=== PATIENT | female | born 1930 | race Caucasian/White ===

== ENCOUNTER 2016-09-20 08:42 | Emergency (ER) | payer MEDICARE, BC ==
[~2016-09-20] VITALS: Ht 166.4 cm; Wt 64.0 kg
[~2016-09-20 08:42] MED LIST: AMLO5TAB13 PO; ASPI81TA82 PO; EPIP0.3I IJ; FAMO40TA PO; FEXO60TA PO; MEDR4PAK3 PO; MOTELUKAST PO; PRAV20 PO; RANI150 PO
[2016-09-20 08:52] VITALS: BP 129/75; PULSE 102; RESP 18; TEMP 99.3; O2SAT 93
[2016-09-20] MEDS ORDERED: SODIUM CHLOR 0.9% 1000 ML INJ 1,000 ML IV ONE (09:15)
[2016-09-20] MEDS ORDERED: methylPREDNISolone SOD SUCC 125 MG/2 ML VIAL IVP ONE (09:15)
[2016-09-20] MEDS ORDERED: BENZONATATE 100 MG CAP PO ONE (09:15)
[2016-09-20] MEDS: RESP: ALBUTEROL 2.5 MG/3 ML NEB (SCH) INH (09:20)
--- NOTE | 2016-09-20 09:23 | PD ---
HPI Chief Complaint: Cold / Flu Symptoms Time Seen by Provider: 09:04 Travel History International Travel<30 days: No Contact w/Intl Traveler<30days: No Traveled to known affect area: No History of Present Illness HPI Patient is an 85-year-old female who presents to emergency room with complaints of cough, nasal congestion, postnasal drip for the past 4 days. Patient reports that she followed up with her primary care doctor 4 days ago for these symptoms, reports that she was treated with a Z-Jayesh and promethazine with codeine. Patient reports that she has one more day of antibiotics left, reports that her symptoms have been persistent. Reports that she is still coughing, reports a productive cough with thick greenish sputum. Reports that she has been coughing so much, she has been unable to get good sleep. Patient denies no fevers or chills. Patient denies any sick contacts. Patient denies chest pain or shortness of breath. Patient did get the flu vaccine this year. PFSH Past Medical History High Cholesterol: Yes Diminished Hearing: No Immunizations Current: No ?: Not Past Surgical History Appendectomy: Yes Social History Alcohol Use: Yes (OCC.) Tobacco Use: No Substance Use: No Allergies-Medications (Allergen,Severity, Reaction): Coded Allergies: No Known Allergies (Unverified , 09/20/16) Reported Meds & Prescriptions Reported Meds & Active Scripts Active Levaquin (Levofloxacin) 750 Mg Tab 750 Mg PO DAILY 7 Days Prednisone 20 Mg Tab 20 Mg PO BID 5 Days Proair Hfa 8.5 GM Inh (Albuterol Sulfate) 90 Mcg/Act Aer 2 Puff INH Q4-6H PRN 108 mcg/actuation Tessalon Perles (Benzonatate) 100 Mg Cap 200 Mg PO TID PRN Reported Zithromax Z-Jayesh (Azithromycin) 250 Mg Dspk 250 Mg PO DIRECTED 500 MG (2 tabs) day 1, then 1 tab days 2-5. Promethazine VC-Codeine Liq (Jshktfshz-Xkveixetjawa-Mgvvooq Liq) 6.25-5-10 mg/ 5Ml Syp 5 Ml PO Q4-6H PRN Multi Vitamin Daily (Multiple Vitamin) 1 Tab Tab 1 Tab PO DAILY Pravastatin 40 Mg Tab 40 Mg PO HS Aspir-81 (Aspirin) 81 Mg Tabdr 1 Tab PO DAILY [Motelukast] 10 Mg PO DAILY Review of Systems General / Constitutional: No: Fever, Chills Cardiovascular: No: Chest Pain or Discomfort, Palpitations, Irregular Rhythm Respiratory: Positive: Cough, No: Shortness of Breath, Wheezing, Sneezing, Night Sweats Gastrointestinal: No: Nausea, Vomiting, Diarrhea, Abdominal Pain, Constipation Physical Exam Narrative GENERAL: No acute distress, nontoxic] SKIN: Warm and dry. HEAD: Atraumatic. Normocephalic. EYES: Pupils equal and round. No scleral icterus. No injection or drainage. ENT: No nasal bleeding or discharge. Mucous membranes pink and moist. NECK: Trachea midline. No JVD. CARDIOVASCULAR: Regular rate and rhythm. No murmur appreciated. RESPIRATORY: No accessory muscle use. Clear to auscultation. Breath sounds equal bilaterally. GASTROINTESTINAL: Abdomen soft, non-tender, nondistended. Hepatic and splenic margins not palpable. MUSCULOSKELETAL: No obvious deformities. No clubbing. No cyanosis. No edema. NEUROLOGICAL: Awake and alert. No obvious cranial nerve deficits. Motor grossly within normal limits. Normal speech. PSYCHIATRIC: Appropriate mood and affect; insight and judgment normal. Data Data Last Documented VS Vital Signs Date Time Temp Pulse Resp B/P Pulse Ox O2 Delivery O2 Flow Rate FiO2 09/20/16 09:00 107 16 94 Room Air 09/20/16 08:52 99.3 129/75 Orders Complete Blood Count With Diff (09/20/16 09:11) Comprehensive Metabolic Panel (09/20/16 09:11) Urinalysis - C+S If Indicated (09/20/16 09:11) Influenzae A/B Antigen (09/20/16 09:11) Chest, Single Ap (09/20/16 09:11) Sodium Chlor 0.9% 1000 Ml Inj (Ns 1000 M (09/20/16 09:15) Methylprednisolone So Succ Inj (Solumedr (09/20/16 09:15) Albuterol Neb (Albuterol Neb) (09/20/16 09:15) Benzonatate (Tessalon) (09/20/16 09:15) Blood Culture (09/20/16 10:31) Ceftriaxone Inj (Rocephin Inj) (09/20/16 10:45) Azithromycin Inj (Zithromax Inj) (09/20/16 10:45) Urine Culture (09/20/16 10:15) Labs Laboratory Tests Test 09/20/16 09/20/16 09:30 10:15 White Blood Count 10.3 TH/MM3 Red Blood Count 4.98 MIL/MM3 Hemoglobin 15.0 GM/DL Hematocrit 43.6 % Mean Corpuscular Volume 87.6 FL Mean Corpuscular Hemoglobin 30.1 PG Mean Corpuscular Hemoglobin 34.4 % Concent Red Cell Distribution Width 12.5 % Platelet Count 217 TH/MM3 Mean Platelet Volume 7.5 FL Neutrophils (%) (Auto) 70.8 % Lymphocytes (%) (Auto) 21.9 % Monocytes (%) (Auto) 5.8 % Eosinophils (%) (Auto) 0.2 % Basophils (%) (Auto) 1.3 % Neutrophils # (Auto) 7.4 TH/MM3 Lymphocytes # (Auto) 2.2 TH/MM3 Monocytes # (Auto) 0.6 TH/MM3 Eosinophils # (Auto) 0.0 TH/MM3 Basophils # (Auto) 0.1 TH/MM3 CBC Comment DIFF FINAL Differential Comment Sodium Level 139 MEQ/L Potassium Level 4.1 MEQ/L Chloride Level 104 MEQ/L Carbon Dioxide Level 25.1 MEQ/L Anion Gap 10 MEQ/L Blood Urea Nitrogen 11 MG/DL Creatinine 0.71 MG/DL Estimat Glomerular Filtration 78 ML/MIN Rate Random Glucose 114 MG/DL Calcium Level 8.7 MG/DL Total Bilirubin 1.1 MG/DL Aspartate Amino Transf 52 U/L (AST/SGOT) Alanine Aminotransferase 49 U/L (ALT/SGPT) Alkaline Phosphatase 92 U/L Total Protein 7.2 GM/DL Albumin 3.4 GM/DL Urine Collection Type CATH Urine Color PERLA Urine Turbidity MOD Urine pH 6.0 Urine Specific [place] 1.028 Urine Protein 30 mg/dL Urine Glucose (UA) NEG mg/dL Urine Ketones 15 mg/dL Urine Occult Blood TRACE Urine Nitrite NEG Urine Bilirubin NEG Urine Leukocyte Esterase SMALL Urine RBC 0-3 /hpf Urine WBC 9-14 /hpf Urine Squamous Epithelial 0-5 /hpf Cells Urine Transitional Epithelial 0-5 /hpf Cells Urine Amorphous Sediment MOD Microscopic Urinalysis Comment CATH-CULTURE IND Urine Collection Time 1015 MDM Medical Decision Making Medical Screen Exam Complete: Yes Emergency Medical Condition: Yes Interpretation(s) Vital Signs Date Time Temp Pulse Resp B/P Pulse Ox O2 Delivery O2 Flow Rate FiO2 09/20/16 08:52 99.3 102 18 129/75 93 Laboratory Tests Test 09/20/16 09/20/16 09:30 10:15 White Blood Count 10.3 TH/MM3 (4.0-11.0) Red Blood Count 4.98 MIL/MM3 (4.00-5.30) Hemoglobin 15.0 GM/DL (11.6-15.3) Hematocrit 43.6 % (35.0-46.0) Mean Corpuscular Volume 87.6 FL (80.0-100.0) Mean Corpuscular Hemoglobin 30.1 PG (27.0-34.0) Mean Corpuscular Hemoglobin 34.4 % Concent (32.0-36.0) Red Cell Distribution Width 12.5 % (11.6-17.2) Platelet Count 217 TH/MM3 (150-450) Mean Platelet Volume 7.5 FL (7.0-11.0) Neutrophils (%) (Auto) 70.8 % (16.0-70.0) Lymphocytes (%) (Auto) 21.9 % (9.0-44.0) Monocytes (%) (Auto) 5.8 % (0.0-8.0) Eosinophils (%) (Auto) 0.2 % (0.0-4.0) Basophils (%) (Auto) 1.3 % (0.0-2.0) Neutrophils # (Auto) 7.4 TH/MM3 (1.8-7.7) Lymphocytes # (Auto) 2.2 TH/MM3 (1.0-4.8) Monocytes # (Auto) 0.6 TH/MM3 (0-0.9) Eosinophils # (Auto) 0.0 TH/MM3 (0-0.4) Basophils # (Auto) 0.1 TH/MM3 (0-0.2) CBC Comment DIFF FINAL Differential Comment Sodium Level 139 MEQ/L (136-145) Potassium Level 4.1 MEQ/L (3.5-5.1) Chloride Level 104 MEQ/L (98-107) Carbon Dioxide Level 25.1 MEQ/L (21.0-32.0) Anion Gap 10 MEQ/L (5-15) Blood Urea Nitrogen 11 MG/DL (7-18) Creatinine 0.71 MG/DL (0.50-1.00) Estimat Glomerular Filtration 78 ML/MIN (>89) Rate Random Glucose 114 MG/DL (74-106) Calcium Level 8.7 MG/DL (8.5-10.1) Total Bilirubin 1.1 MG/DL (0.2-1.0) Aspartate Amino Transf 52 U/L (15-37) (AST/SGOT) Alanine Aminotransferase 49 U/L (10-53) (ALT/SGPT) Alkaline Phosphatase 92 U/L (45-117) Total Protein 7.2 GM/DL (6.4-8.2) Albumin 3.4 GM/DL (3.4-5.0) Urine Collection Type CATH Urine Color PERLA (YELLW/STRAW) Urine Turbidity MOD (CLEAR) Urine pH 6.0 (5.0-8.5) Urine Specific [place] 1.028 (1.002-1.035) Urine Protein 30 mg/dL (NEG-TRACE) Urine Glucose (UA) NEG mg/dL (NEG) Urine Ketones 15 mg/dL (NEG) Urine Occult Blood TRACE (NEG) Urine Nitrite NEG (NEG) Urine Bilirubin NEG (NEG) Urine Leukocyte Esterase SMALL (NEG) Urine RBC 0-3 /hpf (0-3) Urine WBC 9-14 /hpf (0-5) Urine Squamous Epithelial 0-5 /hpf (0-5) Cells Urine Transitional Epithelial 0-5 /hpf (NONE) Cells Urine Amorphous Sediment MOD Microscopic Urinalysis Comment CATH-CULTURE IND Urine Collection Time 1015 Microbiology Date/Time Procedure Status Source Growth 09/20/16 10:10 Influenza Types A,B Antigen (OSCAR) - Final Complete Nasal Aspirate NEGATIVE FOR FLU A AND B ANTIGEN.... 09/20/16 10:15 Urine Culture Received Urine Catheterized Urine Pending Differential Diagnosis Pneumonia, influenza, viral syndrome, bronchitis Narrative Course Patient is an 85-year-old female who presents to emergency room with complaints of congestion, postnasal drip, cough for the past 4 days. Patient denies fevers or chills. Patient reports that she did follow up with her primary care doctor 4 days ago was started on a Z-Jayesh and promethazine with codeine. Patient with continued symptoms. Pt clinically well appearing, afebrile in ER, tachy at 102bpm, no SIRS criteria will check pt for the flu xray obtained to check for pneumonia will check cbc, bmp, will place iv and give iv fluids as i did encourage plenty of fluids dose of tessalon pearles ordered for pt pt with bibasilar infitrates, CURB65 score of 1 plan to silva culture patient and start her on levaquin All labs and all studies reviewed with patient and her in detail. Patient feels comfortable to go home and follow-up as outpatient. Patient reports that she is feeling better. Signs and symptoms of when to return to the emergency room reviewed patient in detail. Patient will follow-up with her primary care doctor in 1-2 days, she will return to ER if symptoms progress or worsen. Patient thankful for care. A copy of pt's xray results were given to her. Patient understands need to follow up with all cultures from today Diagnosis Primary Impression: Pneumonia Qualified Code: J18.9 - Pneumonia of both lower lobes due to infectious organism Additional Impressions: UTI (urinary tract infection) Qualified Code: N30.00 - Acute cystitis without hematuria Bronchitis Patient Instructions: General Instructions Departure Forms: Tests/Procedures Additional Instructions: Please provide a copy of all labs to patient at discharge Please complete full course of antibiotics as prescribed Return to ER as needed Please drink plenty of fluids Please follow-up with your primary care doctor in 1-2 days Please follow up with cultures from today Return to ER if symptoms progress or worsen Complete full course of antibiotics Please follow up with all CULTURES from today. Med/Other Pt SpecificInfo: Prescription(s) given Scripts Levofloxacin (Levaquin)750 Mg Sto070 Mg PO DAILY 7 Days Ref 0 Prov:Asha Shaffer DO 09/20/16 Prednisone 20 Mg Tab20 Mg PO BID 5 Days Ref 0 Prov:Asha Shaffer DO 09/20/16 Albuterol 8.5 GM Inh (Proair Hfa 8.5 GM Inh)90 Mcg/Act Aer2 Puff INH Q4-6H PRN ( SHORTNESS OF BREATH) #1 INHALER Ref 0 108 mcg/actuation Prov:Asha Shaffer DO 09/20/16 Benzonatate (Tessalon Perles)100 Mg Lyd539 Mg PO TID PRN (COUGH) #30 CAP Ref 0 Prov:Asha Shaffer DO 09/20/16 Disposition: 01 DISCHARGE HOME Condition: Stable Asha Shaffer DO Sep 20, 2016 09:23
[2016-09-20 09:38] LABS: AUTOMATED NEUTROPHIL # 7.4 TH/MM3 (1.8-7.7); BASOPHIL # 0.1 TH/MM3 (0-0.2); BASOPHIL % 1.3 % (0.0-2.0); EOSINOPHIL % 0.2 % (0.0-4.0); HEMATOCRIT 43.6 % (35.0-46.0); HEMO FLAGS DIFF FINAL; LYMPH % 21.9 % (9.0-44.0); LYMPHOCYTE # 2.2 TH/MM3 (1.0-4.8); MEAN CELL VOLUME 87.6 FL (80.0-100.0); MEAN CORPUSCULAR HEMOGLOBIN 30.1 PG (27.0-34.0); MEAN CORPUSCULAR HGB CONC 34.4 % (32.0-36.0); MONO % 5.8 % (0.0-8.0); NEUT % 70.8 % (16.0-70.0); PLATELET COUNT 217 TH/MM3 (150-450); RED BLOOD COUNT 4.98 MIL/MM3 (4.00-5.30); RED CELL DISTRIBUTION WIDTH 12.5 % (11.6-17.2); WHITE BLOOD COUNT 10.3 TH/MM3 (4.0-11.0)
[2016-09-20] MEDS ORDERED: ALBUAER3 INH (09:41)
[2016-09-20] MEDS ORDERED: PRED20 PO (09:41)
[2016-09-20] MEDS ORDERED: BENZ100 PO (09:41)
--- NOTE | 2016-09-20 09:52 | RADHPO ---
EXAM DATE/TIME: 09/20/2016 09:26 [facility] COMPARISON: No previous studies available for comparison. INDICATIONS : Short of breath, cough. MEDICAL HISTORY : None. SURGICAL HISTORY : None. ENCOUNTER: Initial ACUITY: 1 week PAIN SCORE: 0/10 LOCATION: Bilateral chest FINDINGS: There is mild bibasilar parenchymal opacity and slight blunting of the costophrenic angles indicating small effusions. This is slightly worse on the left than the right. Heart size and mediastinal conto urs are grossly satisfactory. CONCLUSION: Bibasilar infiltrates and small effusions Alec Pierce MD on September 20, 2016 at 9:50 Board Certified Radiologist. This report was verified electronically.
[2016-09-20 10:00] LABS: BLOOD UREA NITROGEN 11 MG/DL (7-18)
[2016-09-20 10:01] LABS: BICARBONATE 25.1 MEQ/L (21.0-32.0)
[2016-09-20 10:03] LABS: ALT (GPT) 49 U/L (10-53); AST (GOT) 52 U/L (15-37); GLOMERULAR FILTRATION RATE 78 ML/MIN (>89)
[2016-09-20 10:05] LABS: ANION GAP 10 MEQ/L (5-15); CHLORIDE 104 MEQ/L (98-107); POTASSIUM 4.1 MEQ/L (3.5-5.1); SODIUM (NA) 139 MEQ/L (136-145); TOTAL BILIRUBIN ADULT 1.1 MG/DL (0.2-1.0)
[2016-09-20 10:06] LABS: ALKALINE PHOSPHATASE 92 U/L (45-117)
[2016-09-20] MEDS ORDERED: ZITHTAB PO (10:07)
[2016-09-20] MEDS ORDERED: MULT1TAB46 PO (10:07)
[2016-09-20] MEDS ORDERED: PROMSYP6 PO (10:07)
[2016-09-20] MEDS ORDERED: PRAV40TA2 PO (10:07)
[2016-09-20] MEDS ORDERED: ASPI81TA81 PO (10:07)
[2016-09-20 10:36] LABS: BLOOD, URINE TRACE (NEG); GLUCOSE,URINE NEG (NEG); KETONE, URINE 15 mg/dL (NEG); METHOD OF COLLECTION CATH; NITRITE,URINE NEG (NEG)
[2016-09-20 10:37] LABS: URINE COLOR AMBER (YELLW/STRAW)
[2016-09-20 10:42] LABS: COMMENT (UR) CATH-CULTURE IND; COMMENT2 (UR) MUCOUS PRESENT; CULTURE IF INDICATED CATH CULTURE IND; RBC, URINE 0-3 /hpf (0-3); SQUAMOUS EPITHELIAL CELL URINE 0-5 /hpf (0-5); TRANSITIONAL EPI CELLS, URINE 0-5 /hpf
[2016-09-20] MEDS ORDERED: cefTRIAXone INJ 1,000 MG in SODIUM CHLORIDE 0.9% INJ 100 ML IV ONE (10:45)
[2016-09-20] MEDS ORDERED: AZITHROMYCIN INJ 500 MG in SODIUM CHLOR 0.9% 250 ML INJ 250 ML IV ONE (10:45)
[2016-09-20] MEDS ORDERED: LEVA750T PO (10:51)
[2016-09-20] MEDS ORDERED: RESP: ALBUTEROL 2.5 MG/3 ML NEB (SCH) NEB ONE (14:15)
[2016-09-20 15:12] VITALS: BP 120/80
== END 2016-09-20 15:16 | disposition home or self-care (01) ==
LOC: PHED 08:42
DX: J18.9 Pneumonia, unspecified organism (principal); N30.00 Acute cystitis without hematuria; J40 Bronchitis, not specified as acute or chronic; E78.00 Pure hypercholesterolemia, unspecified
CPT/HCPCS: 71010; 80053; 81001; 85025; 87040; 87086; 87804; 94640; 94664; 96361; 96365; 96367; 96375; 99284; J0456; J0696; J2930; J7030; J7050; J7613

== ENCOUNTER 2016-12-30 07:28 | Emergency (ER) | payer MEDICARE, BC ==
[~2016-12-30] VITALS: Ht 166.4 cm; Wt 65.0 kg
[~2016-12-30 07:28] MED LIST changes: +ALBUAER3 INH; -AMLO5TAB13 PO; +ASPI81TA81 PO; -ASPI81TA82 PO; +BENZ100 PO; -EPIP0.3I IJ; -FAMO40TA PO; -FEXO60TA PO; +LEVA750T PO; -MEDR4PAK3 PO; +MULT1TAB46 PO; -PRAV20 PO; +PRAV40TA2 PO; +PRED20 PO; +PROMSYP6 PO; -RANI150 PO; +ZITHTAB PO
[2016-12-30 07:33] VITALS: BP 131/75; PULSE 71; RESP 16; TEMP 97.7; O2SAT 99
[2016-12-30] MEDS ORDERED: TRAM50TA PO (08:08)
--- NOTE | 2016-12-30 08:13 | PD ---
HPI Chief Complaint: Pain: Acute or Chronic Time Seen by Provider: 07:41 Travel History International Travel<30 days: No Contact w/Intl Traveler<30days: No Traveled to known affect area: No History of Present Illness HPI The patient was seen and examined in the presence of the nurse. She complains of left knee pain and swelling. Duration one month. No injury. No fever. She 's been using a walker to keep weight off it. 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 PFSH Past Medical History Hx Anticoagulant Therapy: No Cardiovascular Problems: Yes (CHOL) High Cholesterol: Yes Diabetes: No Diminished Hearing: No Respiratory: No Immunizations Current: No Tetanus Vaccination: > 5 Years Influenza Vaccination: Yes ?: Not Menopausal: Yes Past Surgical History Appendectomy: Yes Cholecystectomy: Yes Social History Alcohol Use: Yes (Occ.) Tobacco Use: No Substance Use: No Allergies-Medications (Allergen,Severity, Reaction): Coded Allergies: No Known Allergies (Unverified , 12/30/16) Reported Meds & Prescriptions Reported Meds & Active Scripts Active Reported Pravastatin 40 Mg Tab 40 Mg PO HS Aspir-81 (Aspirin) 81 Mg Tabdr 1 Tab PO DAILY Review of Systems General / Constitutional: No: Fever Eyes: No: Drainage, Visual changes HENT: No: Headaches Cardiovascular: No: Chest Pain or Discomfort Respiratory: No: Cough, Shortness of Breath Gastrointestinal: No: Abdominal Pain Genitourinary: No: Dysuria Musculoskeletal: Positive: Arthralgias, Limited ROM, Pain Skin: No Rash Neurologic: No: Weakness Psychiatric: No: Depression Endocrine: No: Polydipsia Hematologic/Lymphatic: No: Easy Bruising Physical Exam Narrative SKIN: Focused skin assessment reveals no rash or ulcers. Skin is warm and dry. Palpation shows no induration or nodules. GASTROINTESTINAL: Abdomen soft, non-tender, nondistended. Positive bowel sounds. No hepato-splenomegaly, or palpable masses. No guarding. Psych: Normal mood and affect. Normal insight and judgment. Left knee: Patient has an effusion of the left knee. No erythema or warmth. No bony tenderness. Data Data Last Documented VS Vital Signs Date Time Temp Pulse Resp B/P Pulse Ox O2 Delivery O2 Flow Rate FiO2 12/30/16 07:33 97.7 71 16 131/75 99 MDM Medical Decision Making Medical Screen Exam Complete: Yes Emergency Medical Condition: Yes Medical Record Reviewed: Yes Differential Diagnosis Arthritis, traumatic effusion, hemarthrosis Narrative Course I have reviewed the patient's electronic medical record. Patient has an effusion of the left knee for one month. It's nontraumatic. It does not look to be a septic joint. There is no redness or warmth or fever etc. I offered to perform arthrocentesis to remove some fluid and ease her symptoms She thought about it but declines. She is afraid that the fluid will just reaccumulate which is certainly possible I advised her to get a neoprene sleeve and limit weightbearing and ice and elevate if swelling worsens She should follow-up with her primary care or alternatively orthopedist or crematory attendant I wrote her some pain medication Diagnosis Primary Impression: Effusion, left knee Additional Instructions: The patient was advised to follow up with their physician and return if they worsen. The patient was warned about potential sedation for the medications they will receive on prescription. Limit weightbearing on left knee Ice and elevate if swelling worsens Med/Other Pt SpecificInfo: Prescription(s) given Scripts Tramadol 50 Mg Tab50 Mg PO Q6H PRN (PAIN) #20 TAB Ref 0 Prov:Marcello Candelaria MD 12/30/16 Disposition: 01 DISCHARGE HOME Condition: Stable Marcello Candelaria MD Dec 30, 2016 08:13
== END 2016-12-30 08:30 | disposition home or self-care (01) ==
LOC: PHED 07:28
DX: M25.462 Effusion, left knee (principal); E78.00 Pure hypercholesterolemia, unspecified
CPT/HCPCS: 99283